=== PATIENT | male | born 2000 | race Hispanic/Latino ===

== ENCOUNTER 2019-01-17 21:05 | Emergency (ER) | payer OTHER ==
--- NOTE | 2019-01-17 22:33 | RAD ---
FPortable chest: HISTORY: Chest pressure COMPARISON: none FINDINGS: Lung [place] are clear. Heart and mediastinum appear unremarkable. Vascularity is normal. Visualized osseous structures unremarkable. IMPRESSION: No acute finding
--- NOTE | 2019-01-17 22:34 | RAD ---
FNeck for soft tissues: 2 views INDICATIONS: Foreign body sensation Epiglottis is normal. Hypopharynx appears unremarkable. Prevertebral space is normal. Cervical spine unremarkable. IMPRESSION: Unremarkable exam
== END 2019-01-17 22:58 | disposition home or self-care (01) ==
LOC: ERS 21:05
DX: J06.9 Acute upper respiratory infection, unspecified (principal); R07.89 Other chest pain; Z79.899 Other long term (current) drug therapy
CPT/HCPCS: 70360; 71045; 93005